=== PATIENT | male | born 1955 | race Caucasian/White ===

== ENCOUNTER → 2017-01-18 | Day surgery (SDC) | payer OTHER ==
[~2017-01-18] MED LIST: CIPRO PO; FELDENE20 MG PO; FLOMAX0.4 M1 PO; LOTREL 10-40 M1 EACH PO; LOTREL PO; NEXIUM PO; PHENERGAN25 MG PO; PRAVACHOL PO; PRAVACHOL20 MG PO; ROBAXIN; TORADOL10 MG PO; VICODIN 5/1 TAB 5/50 PO; VITAMIN D 4001 UDTAB PO; VITAMIN D350000 UNIT PO; VITAMIN D50000 UNIT; VOLTAREN50 MG; WELLBUTRIN XL PO; WELLBUTRIN XL150 M1 PO
--- NOTE | ~2017-01-18 | OR ---
Unit #: [id number] #: [id number] Patient: REBECCA TURNER [id number] [address] [address] [id number] MR#: [id number] NAME: REBECCA TURNER ROOM: Date of Procedure: 01/18/2017 Admission Date: 01/18/2017 Surgeon: Rupesh Schneider M.D. : 1955 Attending Physician: Milad Schneider Primary Care Physician: Antoni De Leon M.D. [facility] OPERATIVE NOTE PROCEDURE PERFORMED Lumbar epidural steroid injection under x-ray guided needle placement. PREOPERATIVE DIAGNOSES 1. Acute lumbar radiculitis. 2. Spinal stenosis, lumbosacral spine. 3. Herniated disk, L4-L5. 4. Herniated disk, L5-S1. 5. Degenerative disk disease, lumbosacral spine. 6. Degenerative joint disease, lumbosacral spine. INDICATIONS FOR PROCEDURE The patient presents today with a month's long history of crescendo pattern left-sided radicular pain, which has failed to respond to conservative measures which include medication and self-directed physical activity. He is in possession of an MRI report, which shows diffuse disease; however, disease most notably worse at the L4-L5 and the L5-S1 levels. After discussing risks and benefits of proceeding today with an L4-L5 injection with return in 2 weeks, the patient agreed this would be the appropriate course of action. DESCRIPTION OF PROCEDURE He was then taken to the operating room, where he was prepped and draped in a sterile manner. Standard monitors were applied. He refused all forms of sedation and lumbar epidural space accessed at the L4-L5 level using loss of resistance technique and x-ray guidance. Needle placement was confirmed with injection of 2 mL of Omnipaque. Approximately 90% of dye flow was in the superior direction at this L4-L5 needle placement. Following successful needle placement confirmation, the patient received an injectate containing 4 mL normal saline and 80 mg of methylprednisolone. He tolerated this procedure well. He was discharged home with followup instructions, which include return on 02/01/2017, at that point, he will most likely receive an L5-S1 with potential dual needle placement depending upon dye flow at this L5-S1 placement. Dictated by... Hollis Craig/valorie TD: 01/18/2017 11:51 Unit #: [id number] #: [id number] Patient: REBECCA TURNER JOB #: [id number] CC: Antoni De Leon M.D. [facility] OPERATIVE NOTE Page 1 of 1 X Milad Schneider MD X PROCEDURE OPERATIVE NOTE
== END | disposition home or self-care (01) ==
LOC: CCSC 01-13 12:15
DX: M51.17 Intervertebral disc disorders with radiculopathy, lumbosacral region (principal); M51.16 Intervertebral disc disorders with radiculopathy, lumbar region; M47.27 Other spondylosis with radiculopathy, lumbosacral region; M48.07 Spinal stenosis, lumbosacral region; K21.9 Gastro-esophageal reflux disease without esophagitis; Z88.5 Allergy status to narcotic agent; Z79.899 Other long term (current) drug therapy; Z98.890 Other specified postprocedural states
CPT/HCPCS: J1040; J2250